=== PATIENT | male | born 1950 | race Caucasian/White ===

== ENCOUNTER 2023-04-08 06:20 | Inpatient (IN) | payer MEDICARE, OTHER ==
[2023-04-08] MEDS ORDERED: SODIUM CHLORIDE 0.9% 500 ML IV STA (06:40)
[2023-04-08] MEDS ORDERED: diltiaZEM INJ 5 MG/ML VIAL IVP STA ×2 (06:41→08:02)
--- NOTE | 2023-04-08 06:44 | ED Physician Documentation ---
History of Present Illness - Stated complaint Stated Complaint: CHEST PX/SOA - Chief complaint Chief Complaint: Cardiac - Additonal information Additional information: Patient is 73-year-old male presenting to the emergency department with chest pain and shortness of breath. Reports became acutely short of breath with chest pain radiating across his chest and into his back. This began Saturday. He has been having progressively worsening symptoms since that time. He denies any cardiac history. Reports a cardiac catheterization that occurred 7 years ago which he states was "clean". Denies chronic medical conditions. Takes no prescription medications.Denies alcohol abuse or recreational substance abuse. Review of Systems Constitutional: denies: Fever Eyes: denies: Loss of vision Ears: denies: Loss of hearing Nose: denies: Rhinorrhea / runny nose Throat: denies: Dental pain / toothache Cardiac: reports: Chest pain / pressure Respiratory: reports: Dyspnea GI: denies: Abdominal Pain : denies: Dysuria PD PAST MEDICAL HISTORY - Past Surgical History Cardiovascular: Cardiac catheterization - Present Medications Home Medications: Ambulatory Orders Medication Instructions Recorded Confirmed No Known Home Medications 04/08/23 04/08/23 - Allergies Allergies/Adverse Reactions: Allergies Allergy/AdvReac Type Severity Reaction Status Date / Time No Known Drug Allergies Allergy Verified 04/08/23 06:34 - Social History Does the pt smoke?: No Smoking Status: Never smoker PD ED PE NORMAL - Vitals Vital signs reviewed: Yes - General General: Alert and oriented X 3, Other (Patient diaphoretic, ill-appearing) - HEENT HEENT: Atraumatic, PERRL, EOMI, Ears normal, Moist mucous membranes, Pharynx benign - Neck Neck: Supple, no meningeal sign, No bony TTP, No adenopathy, Thyroid normal, No JVD, No bruit - Cardiac Cardiac: RRR, Other (Rapid irregular pulse) - Respiratory Respiratory: No respiratory distress - Abdomen Abdomen: Normal bowel sounds, Non tender - Male Male : Deferred - Rectal Rectal: Deferred - Back Back: No CVA TTP - Derm Derm: Normal color Results - Vitals Vitals: Vital Signs - 24 hr 04/08/23 04/08/23 04/08/23 06:24 06:47 06:59 Temperature 36.2 C L Heart Rate 141 H 145 H 111 H Respiratory 14 10 L 11 L Rate Blood Pressure 124/106 H 139/98 H 119/95 H O2 Saturation 96 98 94 04/08/23 04/08/23 07:33 08:30 Temperature Heart Rate 110 H 106 H Respiratory 15 20 Rate Blood Pressure 121/95 H 118/90 H O2 Saturation 97 95 Oxygen O2 Source Room air - EKG (time done) 0652 EKG releavant findings:: EKG personally interpreted by author of this note. Relevant findings are: Atrial fibrillation with rate 157 bpm. Normal axis. Borderline QTc at [address] segment elevations. Nonspecific ST-T wave abnormalities. - Labs Labs: Laboratory Tests 04/08/23 04/08/23 04/08/23 06:40 06:41 06:41 WBC 7.1 RBC 4.40 L Hgb 13.8 L Hct 42.4 MCV 96.4 H MCH 31.4 H MCHC 32.5 RDW 13.7 Plt Count 194 MPV 10.3 Neut # (Auto) 4.3 Lymph # (Auto) 2.0 Esmeralda # (Auto) 0.6 Eos # (Auto) 0.1 Baso # (Auto) 0.0 Absolute Nucleated RBC 0.00 Nucleated RBC % 0.0 PT INR Sodium 136 Potassium 4.1 Chloride 102 Carbon Dioxide 26 Anion Gap 8.0 BUN 19 Creatinine 1.0 Estimated GFR (MDRD) 73 L Glucose 137 H Calcium 10.0 Magnesium Total Bilirubin 0.6 AST 24 ALT 14 Alkaline Phosphatase 77 Troponin I High Sens 13.0 B-Natriuretic Peptide Total Protein 7.1 Albumin 4.4 Globulin 2.7 Albumin/Globulin Ratio 1.6 Lipase 11 TSH Thyroxine (T4) 8.6 Free T3 pg/mL 3.38 04/08/23 04/08/23 04/08/23 06:41 06:41 06:41 WBC RBC Hgb Hct MCV MCH MCHC RDW Plt Count MPV Neut # (Auto) Lymph # (Auto) Esmeralda # (Auto) Eos # (Auto) Baso # (Auto) Absolute Nucleated RBC Nucleated RBC % PT 13.5 H INR 1.2 Sodium Potassium Chloride Carbon Dioxide Anion Gap BUN Creatinine Estimated GFR (MDRD) Glucose Calcium Magnesium 1.8 Total Bilirubin AST ALT Alkaline Phosphatase Troponin I High Sens B-Natriuretic Peptide 893 H Total Protein Albumin Globulin Albumin/Globulin Ratio Lipase TSH 7.13 H Thyroxine (T4) Free T3 pg/mL PD Medical Decision Making - ED course Complexity details: considered differential, d/w patient ED course: Patient 73-year-old male presenting to the emergency department in atrial fibrillation with rapid ventricular response. Likely with a degree of underlying aberrancy. He was diaphoretic but otherwise afebrile and hemodynamically stable and arrival to the emergency department. IV access was established. 500 cc fluid bolus and 10 mg Cardizem given for rate control. I have ordered comprehensive labs however I will be signing the patient out to the oncoming physician, please see their documentation for further detail. Departure - Departure Disposition: [facility] DC/Xfer Clinical Impression: Atrial fibrillation with rapid ventricular response, New onset atrial fibrillation, Chest discomfort Condition: Stable Discharge Date/Time: 04/08/23 10:52
[2023-04-08] MEDS ORDERED: diltiaZEM INJ 5 MG/ML VIAL ONE (06:50)
[2023-04-08 07:06] LABS: ALBUMIN 4.4 g/dL (3.2-5.5); ALBUMIN/GLOBULIN RATIO 1.6 (1.0-2.2); BILIRUBIN,TOTAL 0.6 mg/dL (0.2-1.0); POTASSIUM 4.1 mmol/L (3.5-4.5); TOTAL PROTEIN 7.1 g/dL (6.4-8.9)
[2023-04-08 07:10] LABS: BASOPHILS % (AUTO) 0.6 %; EOSINOPHILS # (AUTO) 0.1 10^3/uL (0.0-0.7); EOSINOPHILS % (AUTO) 1.8 %; HCT - HEMATOCRIT 42.4 % (42.0-52.0); HGB - HEMOGLOBIN 13.8 g/dL (14.0-18.0); LYMPHOCYTES % (AUTO) 27.4 %; MEAN CORPUSCULAR HEMOGLOBIN 31.4 pg (27.0-31.0); MEAN CORPUSCULAR HGB CONC 32.5 g/dL (32.0-36.0); MEAN CORPUSCULAR VOLUME 96.4 fL (80.0-94.0); MEAN PLATELET VOLUME 10.3 fL (7.4-11.4); MONOCYTES # (AUTO) 0.6 10^3/uL (0.0-1.0); MONOCYTES % (AUTO) 8.6 %; NEUTROPHILS # (AUTO) 4.3 10^3/uL (1.5-6.6); NEUTROPHILS % (AUTO) 60.6 %; PLT - PLATELET COUNT 194 10^3/uL (130-450); RED CELL DISTRIBUTION WIDTH 13.7 % (12.0-15.0); WHITE BLOOD COUNT 7.1 x10^3/uL (4.8-10.8)
[2023-04-08 07:30] LABS: MAGNESIUM 1.8 mg/dL (1.7-2.3)
[2023-04-08 07:44] LABS: THYROID STIMULATING HORMONE 7.13 uIU/mL (0.34-5.60)
[2023-04-08] MEDS ORDERED: diltiaZEM 30 MG TABLET PO STA (08:02)
[2023-04-08] MEDS ORDERED: ASPIRIN CHEW 81 MG TABLET PO STA (08:03)
--- NOTE | 2023-04-08 08:32 | ED Physician Documentation ---
ED Addendum - Addendum Addendum: 04/08/23 08:29 His dyspnea and chest tightness improved quite a bit after that diltiazem and the heart rate is now 1 teens. This seems to correlate with his symptoms being related to the rapid A-fib. He does not have an elevated troponin. His BNP is elevated at 893 suggestive of some element of congestive failure related to the right. No signs of acute heart injury. His electrolytes are mainly normal. TSH is slightly elevated and I added on a T3 free and a T4. His heart rate is starting to creep back up to 120s and so I will give a repeat dose of the diltiazem IV. We will then want to make taking a continued slower heart rate so gave a low-dose p.o. dose. He was given 4 baby aspirin. I did not start anticoagulants as yet but defer that discussion for the hospitalist. It is 3 days at least of the rapid A-fib symptoms and he could not really tell that it was a fast rate. I therefore did not feel he was a candidate for electrical cardioversion. He had a heart cath he believes about 7 years ago that did not show any significant stenoses. He has had some shortness of breath with activity for over a year but has not been escalating. He may subsequently need further work- up to evaluate for heart disease is ischemic but does not have symptoms suggestive at this time and a normal normal troponin. I did talk with the hospitalist however as we need to ensure adequate heart rate control and further evaluation and some treatment for likely mild congestive rupinder lure. Disposition the patient is admitted to the hospital in stable condition Diagnoses: 1. new onset rapid A-fib 2. Chest discomfort
--- NOTE | 2023-04-08 09:11 | XRAY Report ---
PROCEDURE: Chest 1 View X-Ray INDICATIONS: Chest pain TECHNIQUE: One view of the chest was acquired. COMPARISON: None. FINDINGS: Surgical changes and devices: Right proximal humeral hardware is partially seen. Lungs and pleura: No pleural effusions or pneumothorax. Generalized interstitial prominence can be s een. No focal infiltrates are seen. Mediastinum: Mediastinal contours appear normal. Heart size is moderately enlarged. Bones and chest wall: No suspicious bony lesions. Overlying soft tissues appear unremarkable. A cu rvilinear pattern can be seen. IMPRESSION: Moderate cardiomegaly with interstitial prominence. CHF is suspected. Infection is possible, yet cons idered to be less likely. Note: No significant discrepancy from the preliminary report. Reviewed by: Koby Nunes MD on 04/08/2023 8:10 AM GREG Approved by: Koby Nunes MD on 04/08/2023 8:10 AM GREG Station ID: [id number]
[2023-04-08] MEDS ORDERED: ACETAMINOPHEN 325 MG TABLET PO PRN (09:22)
[2023-04-08] MEDS ORDERED: ONDANSETRON 4 MG/2 ML VIAL IVP PRN (09:22)
[2023-04-08 10:33] LABS: INR 1.2 (0.8-1.2); PT - PROTHROMBIN TIME 13.5 secs (9.9-12.6)
--- NOTE | 2023-04-08 11:34 | PHARMACY PROGRESS NOTE ---
- Best Possible Medication History Admit Date and Time: 04/08/23921 Processed by: Nursing As the person ultimately responsible for medication therapy, providers are able to order a medication from an existing home medication list in [facility] via the "Reconcile Routine" prior to Confirmation of that medication by support coordinator. Such practice is discouraged except when the physician, in their clinical judgment, deems that a medical need exists for a medication without regard to previous use.
--- NOTE | 2023-04-08 16:06 | HISTORY & PHYSICAL EXAMINATION ---
Chief Complaint - Chief Complaint Chief Complaint: CP and SOA History of Present Illness - Admitted From Admitted From:: ED - History Obtained From History obtained from: ED provider and the patient - History of Present Illness HPI Comment/Other: This is a 73-year-old male with past history of a ground-level fall off a ladder 7 years ago leading to a shattered humerus, and he has also had a broken nose, and needed right knee surgery. He otherwise has a negative past medical history and takes no prescription medications. 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 He was able to finish his work and after he got out from under the truck, he noticed even worsening of those symptoms. He was able to "hold his breath" which made the symptoms subside. They kept recurring throughout the day and he took an adult dose aspirin. He was able to sleep that night but the following day, yesterday, he had recurrence of all the symptoms and they would come and go all day and all night and kept him awake. He thinks there were palpitations occasionally as well. Because of continued chest pain and shortness of breath. he presented to the emergency room this morning. He was found to have new onset of atrial fib at rate of 150. His BNP was e levated at 800, troponin normal at 13. His chest x-ray showed pulmonary edema, no infiltrates. He was given diltiazem IV push x2 which decreased his heart rate to 110 and then to 80, but the heart rate has been increasing again to 120. The patient denies any recent fever, no new medications, no air travel or any other new events. He does describe having a coronary angiogram 7 years ago, done bec ause of having "signs of a heart attack on EKG", and he claims that the angiogram showed no coronary blockages. The ED provider spoke to me about this patient. He will be placed in Observation status to evaluate and treat his A- fib with RVR, chest pain and CHF. 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 Mother of old age. He has 1 brother who is healthy. Living arrangement: At home Living Situation: With spouse/s.o. 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 He never smoked cigarettes, uses no drugs, drinks no alcohol. - Substance History Use: Uses substance without health or social issues: NONE - POLST Patient has POLST: No Meds/Allgy - Home Medications Home Medications: Ambulatory Orders Medication Instructions Recorded Confirmed No Known Home Medications 04/08/23 04/08/23 - Allergies Allergies/Adverse Reactions: Allergies Allergy/AdvReac Type Severity Reaction Status Date / Time No Known Drug Allergies Allergy Verified 04/08/23 06:34 Review of Systems - Cardiovascular Cariovascular: reports: Palpitations, Chest pain, Lightheadedness, Exertional dyspnea - Respiratory Respiratory: reports: SOB with exertion - All Other Systems All Other Systems: reports: Reviewed and negative Exam - Vital Signs Vital Signs: Vital Signs x48h Temp Pulse Pulse Resp BP BP Pulse Ox 04/08/23 13:00 36.4 C L 76 18 119/85 H 96 04/08/23 10:00 73 16 112/85 H 96 04/08/23 09:30 80 20 103/86 H 95 04/08/23 08:30 106 H 20 118/90 H 95 - Physical Exam General Appearance: positive: Mild distress (he appears nervous) Eyes Bilateral: positive: Normal inspection, EOMI ENT: positive: No signs of dehydration, Other (Deviated septum and nose not centered) Neck: positive: Nml inspection, Thyroid nml, No JVD Respiratory: positive: Rales (both bases) Cardiovascular: positive: No murmur, Irregularly irregular, Tachycardia Abdomen: positive: Non-tender, Nml bowel sounds, No distention Skin: positive: Warm, Dry Extremities: positive: Non-tender, No pedal edema Neurologic/Psychiatric: positive: Oriented x3, Motor nml Conclusion/Plan - Problem List (1) Atrial fibrillation with rapid ventricular response Conclusion/Plan: The patient's first troponin was negative, his thyroid panel does not show hyperthyroidism. The chest x-ray points to pulmonary edema which could be secondary to the rapid rate or could be the primary cause leading to the new dysrhythmia With the recurrence of chest pain, we also need to consider PE as the cause of this new onset A-fib Plan: Obtain CTA chest to rule out PE Continue with meds for rate control: I will start him on Cardizem p.o. 30 mg 4 times daily, tara transition that to Cardizem CD or Toprol depending on his W/U. The patient's CHADS2 score is currently 1 therefore aspirin daily is adequate for stroke prophylaxis. he got aspirin in the ER today. If the patient has evidence of systolic heart failure on Echo however, he has a higher CHADS2 score, and would then need to be on anticoagulants. Because of this likely possibility, I will start him on therapeutic Lovenox twice daily dosing today, and transition him to Eliquis or other anticoagulant after the Echo is done. (2) Chest discomfort Conclusion/Plan: He describes recurrent chest pain lasting many hours overall and with a negative troponin, this does not sound like angina My concern is that he may be having pleuritic pain and this could be a sign of a PE Another etiology could be pericarditis Plan: Repeat troponins to rule out an acute ID. If negative he will need a stress test or coronary angiogram for further coronary evaluation. Obtain a complete Echocardiogram We will obtain a CTA chest to rule out PE (3) CHF (congestive heart failure) Conclusion/Plan: The patient describes dyspnea on exertion but denies orthopnea or PND, however today he tells me his most comfortable position is with head of bed elevated. Chest x-ray shows pulmonary edema Plan: We will repeat his troponin to rule out an ID as the cause of heart failure Will continue to give meds for rate control, which is probably the reason he went into heart failure I will begin IV diuretics, follow I's and O's and daily weights, electrolytes and magnesium, follow BNP We will obtain a complete Echocardiogram (4) LBBB (left bundle branch block) Conclusion/Plan: The patient has LBBB on his admission EKG. His BNP is very levetaed at 800. This combination portends that he does have systolic heart failure. Plan: As in #1 through 3 above - Lab Results Fish Bones: 04/08/23 06:41 04/08/23 06:41 - Diagnostic Imaging Results Diagnostic Imaging Results: positive: Final report reviewed - EKG Results EKG Interpreted Independently: Yes EKG Findings: Atrial fib with RVR, left bundle branch block. No prior EKG available for comparison.
[2023-04-08] MEDS ORDERED: FUROSEMIDE 20 MG/2 ML VIAL IVP STA (16:49)
[2023-04-08] MEDS: diltiaZEM 30 MG TABLET PO SCH ×2 (17:05→20:07)
[2023-04-08] MEDS: SODIUM CHLORIDE FLUSH 0.9% 10 ML SYRINGE IVP SCH (17:06)
--- NOTE | 2023-04-08 18:53 | CT Report ---
PROCEDURE: ANGIO CHEST W/WO INDICATIONS: CP w/ short of breath, new Afib, eval for PE CONTRAST: 80ml Omni 300 TECHNIQUE: After the administration of intravenous contrast, 2 mm axial images were acquired from the pulmonary apices to the posterior costophrenic angles during the arterial phase. In addition, 1 mm lung kernel and 5 mm soft tissue kernel reconstructions were performed. 3-dimensional coronal oblique maximum int ensity projection (MIP) reformats, 8 mm axial MIP, and 5 mm coronal and sagittal MPR reformats were t hen performed through the thorax. For radiation dose reduction, the following was used: automated exp osure control, adjustment of mA and/or kV according to patient size. COMPARISON: Correlation is made with chest CT, 04/08/2023. FINDINGS: Image quality: There is artifact associated with the metallic hardware. Large vessels: No filling defects within the opacified pulmonary arteries, accounting for motion and contrast timing. No evidence of acute aortic syndrome or aortic aneurysm. Lungs and pleura: Small to moderate bilateral pleural effusions are seen, with overlying atelectasis. Generalized ground glass opacity can be seen within the lungs, which is most prominent inferiorly. Mediastinum: Heart size is mildly to moderately enlarged. There is moderate coronary artery calcifica tion No pericardial effusion. No large vessel abnormality. No mediastinal adenopathy by size criteria . A small hiatal hernia is incidentally noted. Chest wall and lower neck: Thyroid is unremarkable. No axillary or supraclavicular adenopathy by size . Bones: No aggressive osseous abnormality. Postoperative change of the right proximal shoulder is part ially seen. Remote anterior deformities can be seen involving the lower thoracic spine, with associat ed accentuated thoracic kyphosis. S-shaped scoliotic curvature is seen. Upper Abdomen: Unremarkable. IMPRESSION: No pulmonary embolus. There is cardiomegaly with pleural effusions and dependently layering groundglass opacity. CHF is regan pected. Additional findings: Moderate coronary artery calcification Small hiatal hernia Remote appearing lower thoracic spine anterior wedge deformities Accentuated thoracic kyphosis Reviewed by: Koby Nunes MD on 04/08/2023 5:51 PM AKDT Approved by: Koby Nunes MD on 04/08/2023 5:51 PM AKDT Station ID: [id number]
[2023-04-08] MEDS ORDERED: iohexoL-300 100 ML VIAL IVP ONE (18:59)
[2023-04-08] MEDS: ENOXAPARIN 100 MG/ML SYRINGE SUBQ SCH (20:07)
[2023-04-08] MEDS ORDERED: diltiaZEM CD 120 MG CAPSULE PO SCH (21:00)
[2023-04-09] MEDS ORDERED: METOPROLOL 5 MG/5 ML VIAL IVP PRN (02:46)
[2023-04-09] MEDS: SODIUM CHLORIDE FLUSH 0.9% 10 ML SYRINGE IVP SCH ×3 (03:28→16:26)
[2023-04-09] MEDS ORDERED: diltiaZEM INJ 5 MG/ML VIAL IVP STA (05:45)
[2023-04-09] MEDS: diltiaZEM 30 MG TABLET PO SCH (08:22)
[2023-04-09] MEDS: ENOXAPARIN 100 MG/ML SYRINGE SUBQ SCH (08:23)
[2023-04-09] MEDS: FUROSEMIDE 20 MG/2 ML VIAL IVP SCH ×2 (08:25→14:36)
[2023-04-09 08:48] LABS: CALCIUM 9.5 mg/dL (8.5-10.3); CREATININE 0.8 mg/dL (0.6-1.3); POTASSIUM 4.2 mmol/L (3.5-4.5)
--- NOTE | 2023-04-09 10:37 | XRAY Report ---
PROCEDURE: Chest 1 View X-Ray INDICATIONS: SOB TECHNIQUE: One view of the chest was acquired. COMPARISON: None. FINDINGS: Surgical changes and devices: None. Lungs and pleura: No pleural effusions or pneumothorax. Lungs are clear. Mediastinum: Mediastinal contours appear normal. Heart size is enlarged. Bones and chest wall: No suspicious bony lesions. Overlying soft tissues appear unremarkable. IMPRESSION: No acute cardiopulmonary process. Reviewed by: Javi Alanis on 04/09/2023 10:36 AM PDT Approved by: Javi Alanis on 04/09/2023 10:36 AM PDT Station ID: [id number]
[2023-04-09] MEDS: SODIUM CHLORIDE FLUSH 0.9% 10 ML SYRINGE IVP PRN (14:37)
--- NOTE | 2023-04-09 15:28 | PROVIDER PROGRESS NOTE ---
Assessment/Plan - Problem List (1) Atrial fibrillation with rapid ventricular response Assessment/Plan: His 2 troponins were WNL, his thyroid panel did not show hyperthyroidism, his CTA chest showed no PE. Plan was to start aspirin daily for stroke prevention (CHADS score of 1). Because of syst heart failure on Echo being a likely possibility given the LBBB, I put him on therapeutic Lovenox twice daily dosing in order to transition him to Eliquis or other anticoagulant after the Echo is done. I started him on Cardizem p.o. 30 mg 4 times daily. On that, his heart rate was between 40 and 120, and he had c/o palpitations with SOB and diaphoresis today. He had no chest pain during that time. An EKG was done during that complaint and showed afib at rate 110, and his LBBB. I gave additional Cardizem 60 mg po x1 and initially planned to increase his Cardizem from 30mg 4 times daily, to Cardizem CD 120 twice daily. Plan: Given the Echo findings of severe systolic heart failure (see #2), I will ch bautista him to Toprol for his rate control and stop the Cardizem Remain on telemetry He is not yet ready for discharge as his heart rate is not yet controlled and he is very symptomatic with the high HRs (2) Acute systolic heart failure (congestive heart failure) Conclusion/Plan: He described GAO and orthopnea only for 2 days. His adm chest x-ray and CT chest showed pulmonary edema and BNP was elevated at 893. His 2 troponins were WNL at 13 and 12, ruling out an acute MA. Today BNP is 933 (all labs were reviewed). He has been started on Lasix IV twice daily, and I am working on getting his HR under better control, which I suspect is the reason he went into heart failure. His Echo was done today and showed LV global hypokinesis, EF 10 to 20%, moderate mitral regurgitation. 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 Plan: I will stop his Cardizem and put him on Toprol-XL, and adjust that to achieve rate control Start spironolactone 25 mg daily Cont IV diuretics, follow I's and O's and daily weights, electrolytes and magnesium, follow BNP Start AMRIT inhibitor. Check his lipids and treat per guidelines (3) LBBB (left bundle branch block) Conclusion/Plan: The patient has LBBB on his admission EKG. His BNP is quite elevated at 893. This combination suggested to me that he had systolic heart failure. Today the Echo confirmed that Plan: As in #1 and 2 (4) Chest discomfort Conclusion/Plan: RESOLVED His 2 troponins were WNL. The CTA chest was neg for PE, but it did show coronary calcification He had no more c/o discomfort once his rate was controlled He did not have pericarditis on Echo Plan: When he can lie flat, and after rate control is achieved, he needs testing to evaluate for CAD - Current Meds Current Meds: Current Medications Generic Name Dose Route Start Last Admin Trade Name Freq PRN Reason Stop Dose Admin Enoxaparin Sodium 100 mg 04/08/23 21:00 04/09/23 08:23 Enoxaparin 100 Mg/Ml Syringe SUBQ 100 mg BID COLTON Administration Furosemide 20 mg 04/09/23 08:00 04/09/23 14:36 Furosemide 20 Mg/2 Ml Vial IVP 20 mg BIDDIURETIC COLTON Administration Metoprolol Tartrate 5 mg 04/09/23 02:46 04/09/23 03:28 Metoprolol 5 Mg/5 Ml Vial IVP 5 mg Q6H PRN Administration Tachycardia Sodium Chloride 10 ml 04/08/23 09:22 04/09/23 14:37 Sodium Chloride Flush 0.9% 10 Ml Syringe IVP 10 ml PRN PRN Administration NEEDED PER PROVIDER ORDERS Sodium Chloride 10 ml 04/08/23 17:00 04/09/23 08:24 Sodium Chloride Flush 0.9% 10 Ml Syringe IVP 10 ml 0100,0900,1700 COLTON Administration - Lab Result Fish Bone Diagrams: 04/08/23 06:41 04/10/23 04:54 - Other Other Results/Comments: EKG (I personally interpreted), which was done today during his diaphoresis and shortness of breath shows: atrial fib, rate 110, LBBB, diffuse nonspecific ST-T changes. Since EKG from 04/08/2023, the rate is slower, other findings are similar. - Additional Planning My Orders: My Active Orders 04/08/23 17:00 Sodium Chloride Flush 0.9% [Normal Saline Flush 0.9%] 10 ml IVP 0100,0900,1700 04/08/23 21:00 Enoxaparin [Lovenox] 100 mg SUBQ BID 04/09/23 07:00 Echo Transthoracic Complete [ECHO] Routine 04/09/23 08:00 FUROSEMIDE INJ 20mg VIAL [LASIX INJ 20mg VIAL] 20 mg IVP BIDDIURETIC 04/09/23 Lunch DIET [Low Sodium Diet] [DIET] 04/09/23 21:00 diltiaZEM CD [Cardizem Cd] 120 mg PO 0800,2100 04/10/23 05:00 BMP - BASIC METABOLIC PANEL [CHEM] DAILYLAB BNP - B-NATRIURETIC PEPTIDE [CHEM] DAILYLAB Subjective - Subjective Patient Reports: Feeling Better (Still has palpitations. Has not had chest pain in a day. Has minimal GAO.) Objective Vital Signs: Vital Signs - 24 hr 04/08/23 04/08/23 04/08/23 15:58 17:05 20:04 Temperature 36.8 C 36.8 C Heart Rate [ 93 90 Brachial] Heart Rate [ Monitoring electrodes] Respiratory 16 16 Rate Blood Pressure 136/70 H Blood Pressure [Left Brachial artery] Blood Pressure 136/70 H 129/94 H [Right Brachial artery] O2 Saturation 95 98 04/08/23 04/08/23 04/09/23 20:07 23:50 02:03 Temperature 36.6 C Heart Rate [ 90 Brachial] Heart Rate [ 117 H Monitoring electrodes] Respiratory 18 Rate Blood Pressure 142/96 H Blood Pressure [Left Brachial artery] Blood Pressure 123/96 H [Right Brachial artery] O2 Saturation 94 04/09/23 04/09/23 04/09/23 02:04 02:19 02:33 Temperature 36.5 C Heart Rate [ 108 H 145 H Brachial] Heart Rate [ 133 H Monitoring electrodes] Respiratory 18 Rate Blood Pressure Blood Pressure 133/100 H 124/93 H 133/102 H [Left Brachial artery] Blood Pressure [Right Brachial artery] O2 Saturation 96 04/09/23 04/09/23 04/09/23 03:24 03:28 03:32 Temperature Heart Rate [ Brachial] Heart Rate [ 122 H 122 H Monitoring electrodes] Respiratory 16 16 Rate Blood Pressure 137/103 H Blood Pressure [Left Brachial artery] Blood Pressure 137/103 H 124/95 H [Right Brachial artery] O2 Saturation 94 91 L 09/05/23 09/05/23 09/05/23 03:38 03:45 03:58 Temperature 36.5 C Heart Rate [ Brachial] Heart Rate [ 102 H 118 H Monitoring electrodes] Respiratory 15 15 Rate Blood Pressure 123/97 H Blood Pressure [Left Brachial artery] Blood Pressure 123/94 H 123/97 H [Right Brachial artery] O2 Saturation 91 L 94 04/09/23 04/09/23 04/09/23 04:01 05:55 05:56 Temperature Heart Rate [ Brachial] Heart Rate [ 147 H Monitoring electrodes] Respiratory 15 17 Rate Blood Pressure 142/111 H Blood Pressure [Left Brachial artery] Blood Pressure 124/107 H 142/111 H [Right Brachial artery] O2 Saturation 95 04/09/23 04/09/23 04/09/23 06:02 06:09 08:22 Temperature Heart Rate [ 121 H Brachial] Heart Rate [ 112 H Monitoring electrodes] Respiratory 16 16 Rate Blood Pressure 110/76 Blood Pressure [Left Brachial artery] Blood Pressure 124/91 H 122/89 H [Right Brachial artery] O2 Saturation 93 92 04/09/23 04/09/23 04/09/23 08:36 13:00 13:06 Temperature 36.7 C 36.3 C L Heart Rate [ Brachial] Heart Rate [ 95 98 Monitoring electrodes] Respiratory 20 20 Rate Blood Pressure 113/88 H Blood Pressure 110/76 113/88 H [Left Brachial artery] Blood Pressure [Right Brachial artery] O2 Saturation 117 H 93 Oxygen O2 Source Room air I&O (Last 24 Hrs): Intake and Output Totals x24h 04/07/23 04/08/23 04/09/23 23:59 23:59 23:59 Intake Total 1508 1200 Balance 1508 1200 General: Alert, Oriented x3 HEENT: Mucous membr. moist/pink Neck: Supple, No JVD Neuro: Alert, Non Focal Cardiovascular: No murmurs Respiratory: No respiratory distress Abdomen: Soft, No tenderness Extremities: No clubbing, No edema, No tenderness/swelling - Results Results: Laboratory Results WBC 7.1 x10^3/uL (4.8-10.8) 04/08/23 06:41 RBC 4.40 10^6/uL (4.70-6.10) L 04/08/23 06:41 Hgb 13.8 g/dL (14.0-18.0) L 04/08/23 06:41 Hct 42.4 % (42.0-52.0) 04/08/23 06:41 MCV 96.4 fL (80.0-94.0) H 04/08/23 06:41 MCH 31.4 pg (27.0-31.0) H 04/08/23 06:41 MCHC 32.5 g/dL (32.0-36.0) 04/08/23 06:41 RDW 13.7 % (12.0-15.0) 04/08/23 06:41 Plt Count 194 10^3/uL (130-450) 04/08/23 06:41 MPV 10.3 fL (7.4-11.4) 04/08/23 06:41 Neut # (Auto) 4.3 10^3/uL (1.5-6.6) 04/08/23 06:41 Lymph # (Auto) 2.0 10^3/uL (1.5-3.5) 04/08/23 06:41 [place] # (Auto) 0.6 10^3/uL (0.0-1.0) 04/08/23 06:41 Eos # (Auto) 0.1 10^3/uL (0.0-0.7) 04/08/23 06:41 Baso # (Auto) 0.0 10^3/uL (0.0-0.1) 04/08/23 06:41 Absolute Nucleated RBC 0.00 x10^3/uL 04/08/23 06:41 Nucleated RBC % 0.0 /100WBC 04/08/23 06:41 PT 13.5 secs (9.9-12.6) H 04/08/23 06:41 INR 1.2 (0.8-1.2) 04/08/23 06:41 Sodium 134 mmol/L (135-145) L 04/09/23 08:21 Potassium 4.2 mmol/L (3.5-4.5) 04/09/23 08:21 Chloride 101 mmol/L (101-111) 04/09/23 08:21 Carbon Dioxide 27 mmol/L (21-32) 04/09/23 08:21 Anion Gap 6.0 (6-13) 04/09/23 08:21 BUN 14 mg/dL (6-20) 04/09/23 08:21 Creatinine 0.8 mg/dL (0.6-1.3) 04/09/23 08:21 Estimated GFR (MDRD) 94 (>89) 04/09/23 08:21 Glucose 140 mg/dL (74-104) H 04/09/23 08:21 Calcium 9.5 mg/dL (8.5-10.3) 04/09/23 08:21 Magnesium 1.8 mg/dL (1.7-2.3) 04/08/23 06:41 Total Bilirubin 0.6 mg/dL (0.2-1.0) 04/08/23 06:41 AST 24 IU/L (10-42) 04/08/23 06:41 ALT 14 IU/L (10-60) 04/08/23 06:41 Alkaline Phosphatase 77 IU/L (42-121) 04/08/23 06:41 Troponin I High Sens 12.0 ng/L (2.3-19.7) 04/08/23 10:33 B-Natriuretic Peptide 933 pg/mL (5-100) H 04/09/23 08:21 Total Protein 7.1 g/dL (6.4-8.9) 04/08/23 06:41 Albumin 4.4 g/dL (3.2-5.5) 04/08/23 06:41 Globulin 2.7 g/dL (2.1-4.2) 04/08/23 06:41 Albumin/Globulin Ratio 1.6 (1.0-2.2) 04/08/23 06:41 Lipase 11 U/L (11-82) 04/08/23 06:41 TSH 7.13 uIU/mL (0.34-5.60) H 04/08/23 06:41 Thyroxine (T4) 8.6 ug/dL (6.1-12.2) 04/08/23 06:40 Free T3 pg/mL 3.38 pg/mL (2.5-3.9) 04/08/23 06:40
[2023-04-09] MEDS: METOPROLOL SUCCINATE 50 MG TABLET PO SCH (20:08)
[2023-04-09] MEDS: APIXABAN 5 MG TABLET PO SCH (20:08)
[2023-04-09] MEDS ORDERED: diltiaZEM CD 120 MG CAPSULE PO SCH (21:00)
[2023-04-10] MEDS: SODIUM CHLORIDE FLUSH 0.9% 10 ML SYRINGE IVP SCH ×3 (01:12→15:33)
[2023-04-10 05:39] LABS: CALCIUM 9.4 mg/dL (8.5-10.3); CHOL/HDL RATIO 3.3 (<5.0); CHOLESTEROL 145 mg/dL; CREATININE 0.7 mg/dL (0.6-1.3); HDL CHOLESTEROL 44 mg/dL; LDL CHOLESTEROL,CALCULATED 89 mg/dL; POTASSIUM 3.8 mmol/L (3.5-4.5); TRIGLYCERIDES 60 mg/dL (48-352); VLDL CHOLESTEROL 12 mg/dL
[2023-04-10] MEDS: FUROSEMIDE 20 MG/2 ML VIAL IVP SCH ×2 (05:39→14:12)
[2023-04-10] MEDS: APIXABAN 5 MG TABLET PO SCH (08:24)
[2023-04-10] MEDS: METOPROLOL SUCCINATE 50 MG TABLET PO SCH (08:24)
[2023-04-10] MEDS ORDERED: lisinopriL 5 MG TABLET PO SCH (09:00)
[2023-04-10] MEDS ORDERED: SPIRONOLACTONE 25 MG TABLET PO SCH (09:00)
[2023-04-10] MEDS: SODIUM CHLORIDE FLUSH 0.9% 10 ML SYRINGE IVP PRN (14:12)
--- NOTE | 2023-04-10 16:13 | Discharge Plan ---
Discharge Plan Problem Reviewed?: Yes Disposition: Home, Self Care Condition: Fair Prescriptions: Spironolactone [Aldactone] 25 mg PO DAILY #30 tab Apixaban [Eliquis] 5 mg PO BID #60 tab Furosemide [Lasix] 20 mg PO DAILY #30 tablet Metoprolol Succinate [Toprol Xl] 50 mg PO BID #60 tab lisinopriL [Zestril] 5 mg PO DAILY #30 tab Diet: Low Sodium Activity Restrictions: No strenuous activty 3 mo Shower Restrictions: No Driving Restrictions: No Instruction Topics: Heart Failure Tracking Weight, Heart Failure Diet Changes Health Concerns: You were hospitalized to evaluate shortness of breath and chest pain and we found you to have atrial fib with a very rapid rate. Then we also found you have a very weak heart muscle, probably caused by longstanding very rapid heart rate. You are being discharged home on several new medicines to control the heart rate, prevent a stroke, strengthen the heart, and prevent water buildup. The new prescriptions were electronically sent to your pharmacy You should see your primary care provider in the next 1 to 2 weeks. You will probably need a referral to a Shredder Tender to have evaluation for coronary disease (with a stress test and if abnormal, then a coronary angiogram). Dr. Milan Vegas comes to the hospital here from [facility] on . This would be someone I recommend to see Please decrease your salt intake. Please be careful with eating foods high in cholesterol. Your fasting cholesterol panel showed a total cholesterol of 145, LDL (bad cholesterol) of 89 (and desirable is under 70), HDL (good cholesterol) of 44 (and desirable is greater than 45), and triglycerides 60 (desirable under 150). Please check your vital signs daily and keep a log of them. Please weigh yourself daily. If you develop a very fast heart rate or if you have gained 3 pounds or more over a day, contact your medical provider, for advice on what to do. 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 After that time, you would benefit from attending cardiac rehab 3 times a week (exercise that is monitored), which can be done here in the [facility], on the ground floor. You would need a referral from your doctor to start that. Plan of Treatment: As above. Care Goals: Improvement in symptoms and stabilization are the goals. Assessment: The patient understands and is agreeable with the plan. Additional Instructions or Follow Up instructions: If you have new or worsening symptoms, call your primary care provider or sustainability coach for advice, or come to the ER. Follow-Up Care: [facility] - Cardiac No Smoking: If you smoke, Please STOP! Call for help.
--- NOTE | 2023-04-10 18:41 | DISCHARGE SUMMARY ---
Discharge Summary Admit Date: 04/08/23 Discharge Date: 04/10/23 Discharging Provider: Dr Catherine Martinez Primary Care Provider: LIANG Boyd Condition at Discharge: Fair Discharge Disposition: 01 Home, Self Care - HPI History of Present Illness: This is a 73-year-old male with past history of a ground-level fall off a ladder 7 years ago leading to a shattered humerus, and he has also had a broken nose, and needed right knee surgery. He otherwise has a negative past medical history and takes no prescription medications. 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 He was able to finish his work and after he got out from under the truck, he noticed even worsening of those symptoms. He was able to "hold his breath" which made the symptoms subside. They kept recurring throughout the day and he took an adult dose aspirin. He was able to sleep that night but the following day, yesterday, he had recurrence of all the symptoms and they would come and go all day and all night and kept him awake. He thinks there were palpitations occasionally as well. Because of continued chest pain and shortness of breath. he presented to the emergency room this morning. He was found to have new onset of atrial fib at rate of 150. His BNP was elevated at 800, troponin normal at 13. His chest x-ray showed pulmonary edema, no infiltrates. He was given diltiazem IV push x2 which decreased his heart rate to 110 and then to 80, but the heart rate has been increasing again to 120. The patient denies any recent fever, no new medications, no air travel or any other new events. He does describe having a coronary angiogram 7 years ago, done because of having "signs of a heart attack on EKG", and he claims that the angiogram showed no coronary blockages. The ED provider spoke to me about this patient. He will be placed in Observation status to evaluate and treat his A- fib with RVR, chest pain and CHF. - HOSPITAL COURSE Hospital Course: (1) Atrial fibrillation with rapid ventricular response He did not have an NH by troponins, his thyroid panel did not show hyperthyroidism, his CTA chest did not show PE. Etiology of the new Afib was unknown. He was started on Cardizem 4 times daily which was increased to Cardizem CD twice daily, but he still had heart rates in the 120's. He was admitted to Inpatient status from Observation. He then had an Echo that showed severe global LV hypokinesis and his meds were then all changed. Cardizem was stopped and he was put on Toprol 50 mg twice daily, which quickly achieved rate control for him, and he was discharged on this. In addition his CHADS2 score was calculated at 2, therefore he was put on Eliquis 5 mg twice daily, for stroke prophylaxis and discharged on this. (2) Acute systolic heart failure (congestive heart failure) He described GAO and orthopnea only for 2 days. His CXR and CT chest showed pulmonary edema. His BNP was moderately elevated at 893. A set of troponins were WNL at 13 and 12, ruling out an acute NH. 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 His Echo showed LV global hypokinesis, EF 10 to 20%, moderate mitral regurgitation. 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 His Cardizem was stopped and he was started on and discharged on Toprol XL, Lisonopril, Lasix and Spironolactone. He was instructed on eating a low salt diet and monitoring daily weights. He needs follow-up with his primary doctor, needs electolytes and Mg rechecked, and needs referral to a Photographer'S Model. In several months, once his work-up is done and he is stabilized, he would benefit from attending cardiac rehab. (3) LBBB (left bundle branch block) The patient had LBBB on his admission EKG, suggesting that he had systolic heart failure. Then the Echo confirmed systolic dysfunction. (4) Chest discomfort His 2 troponins were WNL. The CTA chest was neg for PE, but it did show coronary calcification. He had no more c/o chest discomfort once his rate was controlled. His fasting lipid panel showed an LDL of 89 (goal is LDL<70). A lower cholesterol diet was advised. He needs testing to evaluate for CAD. He was told to avoid strenuous activity. - ALLERGIES Allergies/Adverse Reactions: Allergies Allergy/AdvReac Type Severity Reaction Status Date / Time No Known Drug Allergies Allergy Verified 04/08/23 06:34 - MEDICATIONS Home Medications: Ambulatory Orders Medication Instructions Recorded Confirmed Apixaban [Eliquis] 5 mg PO BID #60 tab 04/10/23 Furosemide [Lasix] 20 mg PO DAILY #30 tablet 04/10/23 Metoprolol Succinate [Toprol Xl] 50 mg PO BID #60 tab 04/10/23 Spironolactone [Aldactone] 25 mg PO DAILY #30 tab 04/10/23 lisinopriL [Zestril] 5 mg PO DAILY #30 tab 04/10/23 - PHYSICAL EXAM AT DISCHARGE General Appearance: positive: No acute distress, Alert Eyes Bilateral: positive: Normal inspection ENT: positive: No signs of dehydration, Other (Abnormal skin around his left eye and his nose) Neck: positive: Nml inspection, No JVD Respiratory: positive: No respiratory distress, Breath sounds nml Cardiovascular: positive: No murmur, Irregularly irregular Abdomen: positive: Non-tender, Nml bowel sounds, No distention Skin: positive: Warm, Dry Extremities: positive: Non-tender, No pedal edema Neurologic/Psychiatric: positive: Oriented x3, Motor nml - LABS Result Diagrams: 04/08/23 06:41 04/10/23 04:54 - FOLLOW UP Follow Up: See PCP at the [facility]. Needs referral to a Phot[facility]'S Model. - TIME SPENT Time Spent in Discharge (Minutes): 40
[2023-04-10 18:53] VITALS: BP 127/98; O2SAT 94
== END 2023-04-10 18:56 | disposition home or self-care (01) | DRG 308 ==
LOC: ED 06:20 → MS2 09:22 → UNDOADMOB 09:22 → MS2 04-10 09:05 → INTOOBSV 04-10 09:05 → OBSVTOIN 04-10 09:05
PROVIDERS: ADMIT Internal Medicine; ATTEND Internal Medicine
DX: I48.91 Unspecified atrial fibrillation (principal); I50.21 Acute systolic (congestive) heart failure; R79.89 Other specified abnormal findings of blood chemistry; R94.6 Abnormal results of thyroid function studies; J81.1 Chronic pulmonary edema; I44.7 Left bundle-branch block, unspecified; I25.10 Atherosclerotic heart disease of native coronary artery without angina pectoris; L98.9 Disorder of the skin and subcutaneous tissue, unspecified; Z80.0 Family history of malignant neoplasm of digestive organs; Z82.49 Family history of ischemic heart disease and other diseases of the circulatory system; Z91.81 History of falling
CPT/HCPCS: 36415; 71045; 71275; 80048; 80053; 80061; 83690; 83735; 83880; 84436; 84443; 84481; 84484; 85025; 85610; 93005; 93306; 96361; 96372; 96374; 96375; 96376; 99285; A9270; J1650; Q9967; 83721

== ENCOUNTER 2023-04-14 22:49 | Outpatient (CLI) | payer MEDICARE, OTHER | END 2023-04-14 22:50 | disposition short-term general hospital (02) | LOC: EMS 22:49 | DX: R06.00 Dyspnea, unspecified (principal); R09.89 Other specified symptoms and signs involving the circulatory and respiratory systems; I48.91 Unspecified atrial fibrillation | CPT/HCPCS: A0425; A0429 ==